=== PATIENT | female | born 1945 | race Caucasian/White ===

== ENCOUNTER → 2017-03-20 | Outpatient (CLI) | payer MEDICARE, OTHER ==
[2017-03-20 10:23] LABS: ALBUMIN 3.7 g/dL (3.4-5.0); ALBUMIN/GLOBULIN RATIO 0.9 (1.0-1.7); CALCIUM 9.1 mg/dL (8.5-10.1); POTASSIUM 3.6 mmol/L (3.5-5.1); TOTAL BILIRUBIN 0.4 mg/dL (0.2-1.0)
[2017-03-21 05:14] LABS: HEMOGLOBIN A1C 6.5 % (4.8-5.6)
== END | disposition home or self-care (01) ==
LOC: LAB 09:24
PROVIDERS: ATTEND Nurse Practitioner
DX: E78.5 Hyperlipidemia, unspecified (principal)
CPT/HCPCS: 36415; 80053; 80061; 83036

== ENCOUNTER → 2017-04-28 | Outpatient (CLI) | payer MEDICARE, OTHER ==
[~2017-04-28] MED LIST: CONTRAST GIVEN MC PRN; IOHEXOL 240 MG/ML 50ML VIAL. ONE; IOHEXOL 300 MG/ML 75 ML VIAL. IV ONE
--- NOTE | 2017-04-28 10:39 | RAD ---
CT of the abdomen and pelvis with contrast, 04/28/2017: History: Right-sided pain Multidetector CT imaging was performed following oral and IV administration of contrast. Multiplanar reconstructions were produced. The gallbladder appears to be surgically absent. The liver is of lower than normal density suggesting fatty change. No hepatic mass or bile duct dilatation is evident. The pancreas is unremarkable. The spleen is of normal size. A 3.7 cm cyst is present posteriorly in the right kidney. There is a small subcentimeter cyst in the lower pole of the right kidney. The kidneys show no evidence of obstruction. There is mild aortic calcific plaquing without evidence of aneurysm. No abdominal or pelvic adenopathy is seen. The uterus is unremarkable. Several small sigmoid diverticula are noted. No paracolonic inflammation is present. The bowel loops are not dilated. A portion of the appendix is visualized and is unremarkable. A small hiatal hernia is noted. No free fluid or free air is evident in the abdomen or pelvis. There are moderate scattered degenerative changes in the spine. IMPRESSION: 1. Probable hepatic steatosis. 2. Minimal sigmoid diverticulosis. 3. Small hiatal hernia. 4. Small renal cysts. 5. No acute abdominal or pelvic abnormality is detected. PQRS Compliance Statement: One or more of the following individualized dose reduction techniques were utilized for this examination: 1. Automated exposure control 2. Adjustment of the mA and/or kV according to patient size 3. Use of iterative reconstruction technique
== END | disposition home or self-care (01) ==
LOC: CT 08:31
PROVIDERS: ATTEND Physician Assistant Medical
DX: N28.1 Cyst of kidney, acquired (principal); K57.30 Diverticulosis of large intestine without perforation or abscess without bleeding; K44.9 Diaphragmatic hernia without obstruction or gangrene
CPT/HCPCS: 74177; Q9966; Q9967

== ENCOUNTER → 2017-06-14 | Outpatient (CLI) | payer MEDICARE, OTHER ==
--- NOTE | 2017-06-14 11:56 | RAD ---
Exam performed: 2 views of the chest. Indication: GERD, RIBS UNDER BREAST TENDER TO TOUCH, BACK PAIN FOR YRS Date of Service:06/14/2017 2:00 AM . Comparison : Two-view chest from 12/23/15. Findings: PA and lateral radiographs of the chest reveal a normal cardiomediastinal contour. The lungs are clear. No pleural fluid is seen. The visualized osseous structures are unremarkable. Impression: Radiographically normal chest.
--- NOTE | 2017-06-15 09:03 | RAD ---
Exam performed: X-ray thoracic spine. History: Back pain for several years, no known injury. Date of service: 06/14/17. Comparison: CT abdomen pelvis from 04/28/17 Findings: AP, lateral and swimmer's view of the thoracic spine is obtained. Generalized osteopenia. Sagittal alignment is preserved. There is mild S-shaped scoliosis of the thoracolumbar spine. The vertebral body heights are essentially maintained. There is mild narrowing of several intervertebral disc spaces. No acute compression fracture. Chronic degenerative changes in the upper lumbar spine. Visualized lungs are clear. Impression: Mild sclerotic changes in multilevel disc degenerative changes involving the thoracic lumbar spine. No acute abnormality seen.
== END | disposition home or self-care (01) ==
LOC: DXRADRC 11:13
PROVIDERS: ATTEND Physician Assistant Medical
DX: M85.88 Other specified disorders of bone density and structure, other site (principal); M41.85 Other forms of scoliosis, thoracolumbar region; M47.896 Other spondylosis, lumbar region; K21.9 Gastro-esophageal reflux disease without esophagitis
CPT/HCPCS: 71020; 72072

== ENCOUNTER → 2017-09-26 | Outpatient (CLI) | payer MEDICARE, OTHER ==
--- NOTE | 2017-09-26 08:08 | RAD ---
2 views of the Chest 09/26/2017 2:00 AM Indication: COUGH X'S 1 WEEK Comparison: Chest radiograph June 14, 2017 Findings: There is mild infiltrate in the lingula with associated mild atelectasis. No pneumothorax or pleural effusion is seen. Right lung is clear. Heart size is normal. Bony thorax is intact. Impression: Mild lingular infiltrate and atelectasis. Radiographic follow-up to ensure complete resolution recommended.
== END | disposition home or self-care (01) ==
LOC: DXRAD 07:33
PROVIDERS: ATTEND Physician Assistant Medical
DX: J98.11 Atelectasis (principal); R91.8 Other nonspecific abnormal finding of lung field
CPT/HCPCS: 71020

== ENCOUNTER → 2017-10-11 | Outpatient (CLI) | payer MEDICARE, OTHER ==
--- NOTE | 2017-10-11 11:46 | RAD ---
2 view CXR: Clinical indications: Chest congestion. Comparison: September 26, 2017.. Findings: The previously seen infiltrate within the lingula has resolved. No new lung infiltrate or pleural effusion or pulmonary edema or lung mass or pneumothorax is seen. The heart size, pulmonary vasculature, mediastinum and both romeo are unremarkable. The osseous structures appear intact. Impression: No new radiographic abnormality is seen. Resolution of lingular infiltrate.
== END | disposition home or self-care (01) ==
LOC: DXRAD 10:35
PROVIDERS: ATTEND Physician Assistant Medical
DX: J18.9 Pneumonia, unspecified organism (principal); I10 Essential (primary) hypertension
CPT/HCPCS: 71020

== ENCOUNTER → 2017-12-21 | Outpatient (CLI) | payer MEDICARE, OTHER ==
[2017-12-21 08:50] LABS: ALBUMIN 3.5 g/dL (3.4-5.0); ALBUMIN/GLOBULIN RATIO 0.8 (1.0-1.7); CALCIUM 9.1 mg/dL (8.5-10.1); CREATININE 0.8 mg/dL (0.6-1.0); GFR 70.9; TOTAL BILIRUBIN 0.4 mg/dL (0.2-1.0); TOTAL PROTEIN 7.7 g/dL (6.4-8.2)
[2017-12-21 08:59] LABS: POTASSIUM 2.8 mmol/L (3.5-5.1)
== END | disposition home or self-care (01) ==
LOC: LAB 07:54
PROVIDERS: ATTEND Nurse Practitioner
DX: E78.5 Hyperlipidemia, unspecified (principal); K21.9 Gastro-esophageal reflux disease without esophagitis; I10 Essential (primary) hypertension; E78.00 Pure hypercholesterolemia, unspecified
CPT/HCPCS: 36415; 80053; 80061

== ENCOUNTER → 2017-12-22 | Outpatient (CLI) | payer MEDICARE, OTHER ==
[2017-12-22 11:20] LABS: CALCIUM 8.7 mg/dL (8.5-10.1); CREATININE 0.8 mg/dL (0.6-1.0); GFR 70.9; POTASSIUM 3.5 mmol/L (3.5-5.1)
== END | disposition home or self-care (01) ==
LOC: LAB 09:01
PROVIDERS: ATTEND Nurse Practitioner
DX: I10 Essential (primary) hypertension (principal)
CPT/HCPCS: 36415; 80048

== ENCOUNTER → 2018-01-01 | Outpatient (CLI) | payer MEDICARE, OTHER ==
[2018-01-01 11:57] LABS: CALCIUM 8.9 mg/dL (8.5-10.1); CREATININE 0.7 mg/dL (0.6-1.0); GFR 82.7; POTASSIUM 3.4 mmol/L (3.5-5.1)
== END | disposition home or self-care (01) ==
LOC: LAB 09:50
PROVIDERS: ATTEND Internal Medicine Cardiovascular Disease
DX: I10 Essential (primary) hypertension (principal)
CPT/HCPCS: 36415; 80048

== ENCOUNTER → 2018-01-11 | Outpatient (CLI) | payer MEDICARE, OTHER ==
[2018-01-11 10:37] LABS: CALCIUM 9.2 mg/dL (8.5-10.1); CREATININE 0.8 mg/dL (0.6-1.0); GFR 70.9; POTASSIUM 3.3 mmol/L (3.5-5.1)
== END | disposition home or self-care (01) ==
LOC: LAB 10:09
PROVIDERS: ATTEND Internal Medicine Cardiovascular Disease
DX: I10 Essential (primary) hypertension (principal)
CPT/HCPCS: 36415; 80048

== ENCOUNTER → 2018-01-18 | Outpatient (CLI) | payer MEDICARE, OTHER ==
[2018-01-18 12:28] LABS: CALCIUM 9.1 mg/dL (8.5-10.1); CREATININE 0.8 mg/dL (0.6-1.0); GFR 70.9; POTASSIUM 3.6 mmol/L (3.5-5.1)
== END | disposition home or self-care (01) ==
LOC: LAB 11:49
PROVIDERS: ATTEND Internal Medicine Cardiovascular Disease
DX: I10 Essential (primary) hypertension (principal); E78.00 Pure hypercholesterolemia, unspecified; E78.5 Hyperlipidemia, unspecified
CPT/HCPCS: 36415; 80048